=== PATIENT | male | born 1980 | race Caucasian/White ===

== ENCOUNTER → 2022-02-08 | Outpatient (CLI) | payer OTHER ==
[~2022-02-08] MED LIST: CIPRO 500MG TA500 MG PO; MULTIPLE VITAMI1 CAP PO; NORCO 325 MG-51 TAB PO; [UNRECOGNIZED DRUG - OTHER] PO
== END ==
LOC: MHCPAIN 09:00
DX: M47.817 Spondylosis without myelopathy or radiculopathy, lumbosacral region (principal); M53.3 Sacrococcygeal disorders, not elsewhere classified; M54.16 Radiculopathy, lumbar region
CPT/HCPCS: G0463

== ENCOUNTER → 2022-03-20 | Outpatient (CLI) | payer OTHER | LOC: MHCPAIN 12:15 | DX: M53.3 Sacrococcygeal disorders, not elsewhere classified (principal); M47.817 Spondylosis without myelopathy or radiculopathy, lumbosacral region; M54.17 Radiculopathy, lumbosacral region | CPT/HCPCS: G0463; J1100; Q9967 ==

== ENCOUNTER → 2022-04-03 | Outpatient (CLI) | payer OTHER | LOC: MHCPAIN 08:15 | DX: M47.817 Spondylosis without myelopathy or radiculopathy, lumbosacral region (principal); M54.50 Low back pain, unspecified; M53.3 Sacrococcygeal disorders, not elsewhere classified | CPT/HCPCS: G0463 ==

== ENCOUNTER → 2022-09-20 | Outpatient (CLI) | payer OTHER | LOC: MHCPAIN 14:29 | DX: M54.50 Low back pain, unspecified (principal); M53.3 Sacrococcygeal disorders, not elsewhere classified; G89.29 Other chronic pain; R20.8 Other disturbances of skin sensation | CPT/HCPCS: G0463 ==